=== PATIENT | male | born 1950 | race Caucasian/White ===

== ENCOUNTER 2020-04-23 23:38 | Emergency (ER) | payer MEDICARE, SELFPAY ==
--- NOTE | ~2020-04-23 | CT_ITS ---
EXAMINATION: CT brain wo con INDICATION: Head injury COMPARISON: None TECHNIQUE: Standard unenhanced head CT. The dose-length product (DLP) was 681.00 mGy-cm. The mA was a djusted according to patient size. Iterative reconstruction technique was employed. FINDINGS: There is no acute intraparenchymal hemorrhage. No evidence of mass lesion. No evidence of a cute infarction. An old lacunar infarct is noted in right periventricular frontal lobe. There is mild periventricular and subcortical hypodensity probably related to small vessel ischemic disease. There is mild prominence of the sulci and ventricles related to cerebral atrophy. Intracranial calcified c erebral atherosclerosis is noted. There are no extra-axial collections. There is no mass effect or mi dline shift. Changes in the globes are likely from ocular lens surgery. There is mild mucosal thicke jaspreet of the paranasal sinuses. Surgical changes are noted in the maxillary sinuses. IMPRESSION: 1. No acute intracranial abnormality. 2. Age related findings. Reviewed, dictated and finalized at location A.
--- NOTE | ~2020-04-23 | CT_ITS ---
EXAMINATION: CT cervical spine wo con DATE: 04/24/2020 02:22 INDICATION: Neck pain TECHNIQUE: Computed tomography (CT) of the cervical spine was performed without intravenous contrast. The dose-length product (DLP) was 404.77 mGy-cm. Automated exposure control and iterative reconstruc tion technique were employed. COMPARISON: None FINDINGS: Bone alignment is normal. There is no fracture. There is mild loss of intervertebral disc s pace height at C5-6. The vertebral body heights are normal. The odontoid is intact. The prevertebral soft tissues are normal. Small degenerative osteophytes project from the anterior endplates of multip le vertebral bodies. There is mild multilevel facet and uncovertebral osteoarthritis. IMPRESSION: 1. Mild cervical spondylosis without acute findings. Reviewed, dictated and finalized at location A.
[2020-04-24 00:13] VITALS: BP 120/68; PULSE 91; RESP 20; TEMP 36.9; O2SAT 94
--- NOTE | 2020-04-24 01:05 | ED.HEATRA ---
HPI - Head Injury General Chief complaint: Head Injury Stated complaint: HEAD LOC, +ETOH Time Seen by Provider: 04/24/20 01:05 History of Present Illness HPI Narrative: He had too much to drink this evening and fell backwards striking his head on the ground. He sustained a laceration to the back of the head. No LOC. He denies any additional pain or injury. History somewhat limited due to intoxication. Related Data Home Medications Medication Instructions Recorded Confirmed atorvastatin 20 mg PO DAILY 04/24/20 buspirone 30 mg PO DAILY 04/24/20 escitalopram oxalate 5 mg PO DAILY 04/24/20 fluticasone propionate INTRANASAL DAILY 04/24/20 metformin 500 mg PO DAILY 04/24/20 pantoprazole 40 mg PO DAILY 04/24/20 Allergies Allergy/AdvReac Type Severity Reaction Status Date / Time No Known Allergies Allergy Verified 04/24/20 00:51 Review of Systems Review of Systems: All systems reviewed & are unremarkable except as noted in HPI and below Exam Const: General: healthy appearing, no acute distress and alert Orientation/consciousness: patient oriented x3 HENMT: Other: 8 cm posterior scalp laceration. Eyes: Pupils: Equal, round and reactive pupils present Neck: Neck: normal visual inspection and no lymphadenopathy Chest: Chest palpation & inspection: no tenderness Resp: Effort & Inspection: normal respiratory effort Auscultation: clear to auscultation bilaterally, no rales, no rhonchi and no wheezes Cardio: Jugular venous distension: no JVD Rate: regular rate Rhythm: regular rhythm Heart sounds: no murmurs GI: Inspection: non-distended GI Palp: Yes Soft to palpation and No Tenderness to palpation present (GI) Skin: General skin exam: normal color Neuro: General: patient oriented x3 and moves all extremities Speech: Abnormal speech present slurred Extrem: General: no edema Psych: Appearance: well kempt Affect: normal affect Course Vital Signs Vital signs: Vital Signs Temperature 36.9 C 04/24/20 00:13 Pulse Rate 91 04/24/20 00:13 Respiratory Rate 20 04/24/20 00:13 Blood Pressure 120/68 04/24/20 00:13 Pulse Oximetry 94 04/24/20 00:13 Temperature 36.9 C 04/24/20 00:13 Pulse Rate 87 04/24/20 02:55 Respiratory Rate 18 07/19/20 02:55 Blood Pressure 116/71 04/24/20 02:55 Pulse Oximetry 95 04/24/20 02:55 Procedures Laceration Laceration 1: Site: scalp Size (cm): 8 Description: linear Depth: simple, single layer Local Anesthetic: none Pre-repair: wound explored and irrigated ====== Skin Level ====== Skin layer closed with: simi Number of sutures: 7 ====== Subcutaneous Layer ====== ====== Muscle Layer ====== ====== Tendon Layer ====== MDM - Head Injury Imaging Data Radiologist's impression: ITS Impressions Head CT 04/24/20 10:11 IMPRESSION: 1. No acute intracranial abnormality. 2. Age related findings. Cervical Spine CT 04/24/20 10:17 IMPRESSION: 1. Mild cervical spondylosis without acute findings. Discharge Plan Discharge Clinical Impression: Laceration of scalp, Closed head injury Patient Disposition: Home, Self-Care Condition: Stable Instructions: Head Injury (ED), Staple Care (ED) Additional Instructions: follow-up for staple removal in 10-14 days Prescriptions: No Action metformin 500 mg tablet 500 mg PO DAILY RF: 0 atorvastatin 20 mg tablet 20 mg PO DAILY RF: 0 pantoprazole 40 mg tablet,delayed release (DR/EC) 40 mg PO DAILY RF: 0 buspirone 30 mg tablet 30 mg PO DAILY RF: 0 fluticasone propionate 50 mcg/actuation spray,suspension INTRANASAL DAILY RF: 0 escitalopram oxalate 5 mg tablet 5 mg PO DAILY RF: 0 Follow-up/Referrals: Siva Brown MD [Physician] - UNKNOWN,DOCTOR [Primary Care Provider] - Discharge Date/Time: 04/24/20 03:05
[2020-04-24 02:00] VITALS: BP 115/68; PULSE 84; RESP 17; O2SAT 95
[2020-04-24 02:55] VITALS: BP 116/71; PULSE 87; RESP 18; O2SAT 95
== END 2020-04-24 03:05 | disposition home or self-care (01) ==
PROVIDERS: Emergency Provider Emergency Medicine
DX: S01.01XA Laceration without foreign body of scalp, initial encounter (principal); Z79.84 Long term (current) use of oral hypoglycemic drugs; M47.812 Spondylosis without myelopathy or radiculopathy, cervical region; W18.39XA Other fall on same level, initial encounter
CPT/HCPCS: 12004; 70450; 72125; 99284; L0140

== ENCOUNTER 2021-02-22 16:22 | Emergency (ER) | payer MEDICARE, SELFPAY ==
--- NOTE | ~2021-02-22 | CT_ITS ---
EXAMINATION: CT brain wo con DATE: 02/22/2021 17:41 INDICATION: Unsteadiness. Weakness. TECHNIQUE: Computed tomography (CT) of the head was performed without intravenous contrast. The mA wa s adjusted according to patient size. Iterative reconstruction technique was employed. Exam dose: 60 5.33 mGy-cm total exam DLP. COMPARISON: 04/24/2020 CT brain FINDINGS: No intracranial mass lesion or hemorrhage or recent cerebrovascular accident. No midline sh ift or mass effect. There is central and cortical cerebral atrophy. Bilateral carotid siphon internal carotid artery calcifications. There is nonspecific diminished atte nuation of the cerebral white matter, likely due to chronic small vessel ischemic changes. Small lacu win infarct in the right frontal periventricular area. No subdural or epidural hematoma. There is evidence of postoperative change including bilateral nasal antral windows. There is severe mucoperiosteal thickening of the maxillary sinuses and prominent soft tissue opacific ation of ethmoid air cells bilaterally. Prominent right and lesser left sphenoid sinus mucoperiosteal soft tissue thickening. No fracture or bone destruction of the cranial vault. Impression: Small right periventricular chronic lacunar infarct Cerebral atherosclerosis and chronic small vessel ischemic changes of cerebral white matter Central and cortical cerebral atrophy Extensive mucoperiosteal thickening of the ethmoid air cells, maxillary sinuses, sphenoid sinuses Postoperative changes including bilateral nasal antral windows Reviewed, dictated and finalized at Location A. Reviewed, dictated and finalized at location B. Impression: Small right periventricular chronic lacunar infarct Cerebral atherosclerosis and chronic small vessel ischemic changes of cerebral white matter Central and cortical cerebral atrophy Extensive mucoperiosteal thickening of the ethmoid air cells, maxillary sinuses , sphenoid sinuses Postoperative changes including bilateral nasal antral windows
--- NOTE | ~2021-02-22 | XR_ITS ---
EXAMINATION: XR chest 1V portable INDICATION: Weakness TECHNIQUE: Portable AP chest at 1708 hours COMPARISON: None available FINDINGS: There is atelectasis or scarring of the left lung base. There is no pleural effusion or pne umothorax. The cardiomediastinal silhouette is normal. There is a healing right sixth rib fracture. IMPRESSION: 1. Atelectasis or scarring of the left lung base. Reviewed, dictated and finalized at location A.
--- NOTE | 2021-02-22 16:55 | ECG_ITS ---
Measurements Intervals [place] Rate: 97 P: 55 CO: 167 QRS: 7 QRSD: 106 T: 40 QT: 335 QTc: 427 Interpretive Statements SINUS RHYTHM INCOMPLETE RIGHT BUNDLE BRANCH BLOCK BASELINE WANDER- I, II, AVR, AVL, V4-V6 BORDERLINE ECG Electronically Signed On 02-22-2021 19:58:08 CDT by Josué Goodwin D.O.
--- NOTE | 2021-02-22 16:58 | ED.GENADULT ---
HPI - General Adult General Chief complaint: Unspecified Stated complaint: loss of balance Time Seen by Provider: 02/22/21 16:34 Source: patient, family and RN notes reviewed Mode of arrival: ambulatory Limitations: no limitations History of Present Illness HPI narrative: Patient is 70 years old white male brought to the emergency room by his because of trouble walking, and taking care of himself as usual, decreased appetite, long hours of sleep, intermittent confusion started 4 days ago. Patient was discharged from [facility] 4 days ago after 3 days of hospitalization of alcohol detox. Last alcohol intake 2 weeks ago. Patient been drinking alcohol over 50 years. Patient was discharged home on Librium 25 mg 3 times daily. Currently patient main complaint is I cannot function as usual. Patient denies any fever, chills, nausea, vomiting, abdominal pain, chest pain, shortness of breath or back pain. Related Data Home Medications Medication Instructions Recorded Confirmed atorvastatin 20 mg PO DAILY 04/24/20 buspirone 30 mg PO DAILY 04/24/20 escitalopram oxalate 5 mg PO DAILY 04/24/20 fluticasone propionate INTRANASAL DAILY 04/24/20 metformin 500 mg PO DAILY 04/24/20 pantoprazole 40 mg PO DAILY 04/24/20 Allergies Allergy/AdvReac Type Severity Reaction Status Date / Time No Known Allergies Allergy Verified 04/24/20 00:51 Review of Systems Review of Systems: Narrative: CONSTITUTIONAL: Denies fever, chills, or sweats. EYES: Denies visual changes, redness, or discharge. ENT: Denies rhinorrhea, congestion, sore throat, or otalgia. CARDIOVASCULAR: Denies chest pain, palpitations, or edema. RESPIRATORY: Denies cough or dyspnea. GASTROINTESTINAL: Denies abdominal pain, nausea, vomiting, or diarrhea. GENITOURINARY: Denies dysuria or hematuria. SKIN: Denies rash or itching. MUSCULOSKELETAL: Denies back pain, joint pain, or myalgia. NEUROLOGIC: Denies headache, numbness, or weakness. PSYCHIATRIC: Denies anxiety or depression. Exam Narrative: Exam Narrative: General appearance: Well-developed, well-nourished Skin: Normal color Head: Normocephalic, nontraumatic Eyes: Clear conjunctiva ENT: Oropharynx normal, ears normal, nose normal Neck: Supple, nontender Chest and respiratory: Airway patent, no respiratory distress, no accessory muscle use Heart: Regular rate/rhythm Abdomen: Soft, nontender, no organomegaly, quiet bowel sounds Vascular: Normal peripheral pulses, normal capillary refill. 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 Labs, chest x-ray, EKG, CT head ordered. Further plan to follow Differential Diagnosis Differential Diagnosis: Electrolyte imbalance, alcohol withdrawal, Librium effects, urinary tract infection Imaging Data Radiologist's impression: Impressions Chest X-Ray 02/22/21 17:12 IMPRESSION: 1. Atelectasis or scarring of the left lung base. Head CT 02/22/21 17:44 Impression: Small right periventricular chronic lacunar infarct Cerebral atherosclerosis and chronic small vessel ischemic changes of cerebral white matter Central and cortical cerebral atrophy Extensive mucoperiosteal thickening of the ethmoid air cells, maxillary sinuses, sphenoid sinuses Postoperative changes including bilateral nasal antral windows ECG Data EKG #1: Attestation: I personally reviewed and interpreted this ECG a
[2021-02-22 16:59] VITALS: BP 127/86; PULSE 99; RESP 14; TEMP 37.2; O2SAT 98
[2021-02-22 17:10] LABS: Basophils Percent Auto 0.4 % (0.2-1.2); Eosinophils Absolute Auto 0.1 K/mm3 (0-0.3); Eosinophils Percent Auto 1.2 % (0-4.4); Hematocrit 44.7 % (42.0-52.0); Hemoglobin 14.7 g/dL (14.0-18.0); Immature Granulocyte Absolute 0.03 K/mm3 (0.00-0.031); Immature Granulocyte Percent A 0.4 % (0-0.5); Lymphocytes Absolute Auto 2.49 K/mm3 (0.9-3.2); Lymphocytes Percent Auto 29.4 % (18.3-44.2); Mean Corpuscular HGB Conc 32.9 g/dl (32-36); Mean Corpuscular Hemoglobin 32.8 pg (26-34); Mean Corpuscular Volume 99.8 fl (80-100); Mean Platelet Volume 10.4 fl (7.4-10.4); Monocytes Absolute Auto 0.7 K/mm3 (0.1-0.6); Monocytes Percent Auto 8.6 % (2.6-8.5); Neutrophils Absolute Auto 5.1 K/mm3 (1.3-6.7); Platelet Count Result 274 k/mm3 (150-375); Red Blood Count 4.48 M/mm3 (4.6-6.20); Red Cell Distribution Width 11.9 % (11.5-14.5); White Blood Count 8.5 K/mm3 (4.5-10.0)
[2021-02-22 17:17] LABS: Ammonia < 9 umol/L (9-30); Ethanol < 10 mg/dL (<10)
[2021-02-22 17:23] LABS: Add Urine Microscopic? NO; Appearance Urine Clear (Clear); Bilirubin Urine Negative (Negative); Blood Urine Negative (Negative); Color Urine Yellow (Yellow); Glucose Urine UA Negative (Negative); Ketones Urine Negative (Negative); Leukocyte Esterase Ur Negative LEU/UL (Negative); Nitrate Urine Negative (Negative); Protein Urine Negative (Negative); Specific Grav Ur 1.006 (1.001-1.035); Urobilinogen Urine Negative mg/dL (<2.0)
[2021-02-22 17:24] LABS: Alanine Aminotransferase 31 U/L (4-50); Albumin Level 4.3 g/dL (3.5-5.1); Alkaline Phosphatase 115 U/L (38-126); Anion Gap 7 mmol/L (8-16); Aspartate Amino Transferase 28 U/L (17-59); Bilirubin,Total 0.4 mg/dL (0.2-1.3); Blood Urea Nitrogen 12 mg/dL (9-20); Calcium 9.6 mg/dL (8.4-10.2); Carbon Dioxide 26 mmol/L (22-30); Chloride 103 mmol/L (98-107); Creatine Kinase 27 U/L (55-170); Estimated CRCL calculation 66 ml/min; Estimated Glomerular Filt Rate > 60; Glucose 149 mg/dL (75-110); Potassium 3.7 mmol/L (3.4-5.0); Sodium 136 mmol/L (137-145)
[2021-02-22 17:25] LABS: INR 0.9; Prothrombin Time 13.1 Seconds (11.1-14.7)
[2021-02-22 17:26] LABS: Partial Thromboplastin Time 30.9 SECONDS (22.3-36.8)
[2021-02-22 18:28] VITALS: BP 133/93; PULSE 94; RESP 14; O2SAT 99
== END 2021-02-22 18:29 | disposition home or self-care (01) ==
PROVIDERS: Emergency Provider Emergency Medicine; PCP Internal Medicine
DX: R53.1 Weakness (principal); T42.4X5A Adverse effect of benzodiazepines, initial encounter; E11.9 Type 2 diabetes mellitus without complications; E78.5 Hyperlipidemia, unspecified; K21.9 Gastro-esophageal reflux disease without esophagitis; F32.9 Major depressive disorder, single episode, unspecified; Z79.899 Other long term (current) drug therapy; Z79.84 Long term (current) use of oral hypoglycemic drugs; I45.10 Unspecified right bundle-branch block; I67.2 Cerebral atherosclerosis; G31.9 Degenerative disease of nervous system, unspecified; F10.20 Alcohol dependence, uncomplicated
CPT/HCPCS: 36415; 70450; 71045; 80053; 80307; 81003; 82140; 82550; 85025; 85610; 85730; 93005; 99284

== ENCOUNTER 2023-03-14 22:58 | Emergency (ER) | payer MEDICARE, SELFPAY ==
--- NOTE | ~2023-03-14 | CT_ITS ---
Non-contrast Head CT History: Status post fall COMPARISON: 02/22/2021 Technique: Axial non-contrast imaging of the brain was performed. Dose reduction technique was used on this scan by utilizing automated exposure control and iterative reconstruction technique. The dose -length product (DLP) was 681.00 mGy-cm. Findings: There is no evidence of intracranial hemorrhage, mass lesion, or acute infarct. Brain par enchyma appears normal. The ventricles and subarachnoid spaces are normal in size. The calvarium ap pears normal. There is bilateral maxillary sinus disease and mild left ethmoid sinus disease. The rem aining visualized paranasal sinuses and mastoid air cells are clear. Impression: No intracranial abnormality seen. Sinus disease, as above. Reviewed, dictated and finalized at location . Impression: No intracranial abnormality seen. Sinus disease, as above.
[2023-03-14 23:01] VITALS: BP 135/70; PULSE 89; RESP 17; TEMP 36.9; O2SAT 98
[2023-03-14 23:14] VITALS: BP 134/81; PULSE 81; RESP 15; TEMP 36.6; O2SAT 98
[2023-03-14 23:15] VITALS: O2SAT 100
[2023-03-15 00:35] VITALS: BP 116/85; PULSE 76; RESP 15; O2SAT 93
--- NOTE | 2023-03-15 00:47 | ED.GENADULT ---
HPI - General Adult General Chief complaint: Head Injury <SONIA Olivo Last Filed: 03/15/23 03:29> Stated complaint: fall, head trauma <SONIA Olivo Last Filed: 03/15/23 03:29> Time Seen by Provider: 03/14/23 23:07 <SONIA Olivo Last Filed: 03/15/23 03:29> Source: patient <SONIA Olivo Last Filed: 03/15/23 03:29> Mode of arrival: ambulatory <SONIA Olivo Last Filed: 03/15/23 03:29> Limitations: no limitations <SONIA Olivo Last Filed: 03/15/23 03:29> History of Present Illness HPI narrative: This is a 72-year-old male who presents to the ED with chief complaint of a head injury that occurred just prior to arrival. Patient reports that he was on [place] deck by [place] when he stumbled and fell and hit his head. He does endorse EtOH use. When asked how much, he states about 2 hours worth. States that he stumbled on something on the ground. Reports that he fell headfirst. Reports some pain and laceration to the top of the scalp. Denies any further site of pain or injury. Denies any other substance use. Denies any LOC or blood thinner use. Denies any neurologic symptoms. <SOINA Olivo Last Filed: 03/15/23 03:29> Related Data Home medications: Home Medications Medication Instructions Recorded Confirmed atorvastatin 20 mg tablet 20 mg PO DAILY 04/24/20 buspirone 30 mg tablet 30 mg PO DAILY 04/24/20 escitalopram oxalate 5 mg tablet 5 mg PO DAILY 04/24/20 fluticasone propionate 50 intranasal DAILY 04/24/20 mcg/actuation nasal spray,suspension metformin 500 mg tablet 500 mg PO DAILY 04/24/20 pantoprazole 40 mg tablet,delayed 40 mg PO DAILY 04/24/20 release <SONIA Olivo Last Filed: 03/15/23 03:29> Allergies/adverse reactions: Allergies Allergy/AdvReac Type Severity Reaction Status Date / Time No Known Allergies Allergy Verified 04/24/20 00:51 <Javad Hopper PA-C - Last Filed: 03/15/23 03:29> Review of Systems Review of Systems: CONSTITUTIONAL: Denies fever, chills, or sweats. EYES: Denies visual changes, redness, or discharge. ENT: Denies rhinorrhea, congestion, sore throat, or otalgia. CARDIOVASCULAR: Denies chest pain, palpitations, or edema. RESPIRATORY: Denies cough or dyspnea. GASTROINTESTINAL: Denies abdominal pain, nausea, vomiting, or diarrhea. GENITOURINARY: Denies dysuria or hematuria. SKIN: See HPI MUSCULOSKELETAL: Denies back pain, joint pain, or myalgia. NEUROLOGIC: Denies headache, numbness, dizziness, or weakness. PSYCHIATRIC: Denies anxiety or depression. <Javad Hopper PA-C - Last Filed: 03/15/23 03:29> Exam Narrative: GENERAL: Clinically intoxicated but cooperative and conversational. HEAD: Normocephalic, atraumatic. EYES: PERRLA and EOMI. ENT: Nares clear, no rhinorrhea or epistaxis. Mucous membranes moist. Oropharynx without tonsillar hypertrophy exudate or other lesions. NECK: Supple. No adenopathy or masses. CHEST: No respiratory distress. Clear to auscultation. No wheezes rales or rhonchi HEART: Regular rate and rhythm. No murmur heard. Normal peripheral pulses. ABDOMEN: Soft, nontender, nondistended, normal active bowel sounds. MSK: Normal range of motion. No edema. SKIN: There is a 5 cm flap laceration to the superiormost scalp. Bleeding controlled. No obvious foreign bodies. NEURO: Alert and oriented x3. No focal deficits. PSYCH: Normal mood and affect. 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 I performed all aspects of the MDM as documented w/ the following additions: 72-year-old male presenting ED with intoxication and head laceration. CT was negative. Laceration was repaired with evans components performed under my supervision. Patient will be discharged. All questions answered. Patient in agreement w/ disposition.
[2023-03-15 02:06] VITALS: BP 126/86; PULSE 72; RESP 14; O2SAT 94
[2023-03-15 02:53] VITALS: BP 150/89; PULSE 78; RESP 16; O2SAT 94
== END 2023-03-15 02:54 | disposition home or self-care (01) ==
PROVIDERS: Emergency Provider Physician Assistant; PCP Internal Medicine
DX: S01.01XA Laceration without foreign body of scalp, initial encounter (principal); W18.09XA Striking against other object with subsequent fall, initial encounter; Z79.84 Long term (current) use of oral hypoglycemic drugs
CPT/HCPCS: 12002; 70450; 99284

== ENCOUNTER 2023-03-23 08:31 | Emergency (ER) | payer MEDICARE, SELFPAY ==
--- NOTE | 2023-03-23 08:38 | ED.SKABFB ---
HPI - Skin/Abscess/Foreign Bdy General Chief complaint: Skin/Abscess/Foreign Body Stated complaint: Remove Simi Source: patient and RN notes reviewed History of Present Illness HPI narrative: 72 yo M Presents to urgent care with requests for staple removal. Pt was seen in the ED on 03/15/23 and recieved simi to his superior scalp after losing his balance and falling, hitting his head on the deck, per ED notes. Pt presents today with no complaints. Pt denies any drainage or tenderness to the area. Denies any ORDOÑEZ, dizziness, chest pain, or SOB. Related Data Home Medications Medication Instructions Recorded Confirmed atorvastatin 20 mg tablet 20 mg PO DAILY 04/24/20 03/23/23 buspirone 30 mg tablet 30 mg PO DAILY 04/24/20 03/23/23 escitalopram oxalate 5 mg tablet 5 mg PO DAILY 04/24/20 03/23/23 fluticasone propionate 50 50 mcg intranasal DAILY 04/24/20 03/23/23 mcg/actuation nasal spray,suspension metformin 500 mg tablet 500 mg PO DAILY 04/24/20 03/23/23 pantoprazole 40 mg tablet,delayed 40 mg PO DAILY 04/24/20 03/23/23 release Allergies Allergy/AdvReac Type Severity Reaction Status Date / Time No Known Allergies Allergy Verified 03/23/23 08:36 Review of Systems Review of Systems: CONSTITUTIONAL: Denies fever, chills, or sweats. EYES: Denies visual changes, redness, or discharge. ENT: Denies otalgia and sore throat CARDIOVASCULAR: Denies chest pain, palpitations, or edema. RESPIRATORY: Denies cough or dyspnea. GASTROINTESTINAL: Denies abdominal pain, nausea, vomiting, or diarrhea. GENITOURINARY: Denies dysuria or hematuria. SKIN: wound to top of scalp. MUSCULOSKELETAL: Denies back pain, joint pain, or myalgia. NEUROLOGIC: Denies headache, numbness, or weakness. Pertinent positives per HPI. PMFSH Comments At the time of my signature, I reviewed and agree with the nursing past medical, surgical, social, and family history. There is no relevant family history pertinent to the patient complaint. Exam Narrative: GENERAL: This is a well-nourished, well-developed patient, in no apparent distress. HEAD: normocephalic, atraumatic. EYES: Sclera clear/white. Vision is grossly intact. EARS: External ears normal, auditory canals clear and without drainage. Hearing grossly intact. NOSE: External nose normal with no obvious nasal discharge, nares without redness, no rhinorrhea. THROAT: Mucous membranes moist, posterior pharynx clear. NECK: Neck supple, non-tender without lymphadenopathy, masses or thyromegaly. CARDIOVASCULAR: Regular rate and rhythm without murmurs, gallops, or rubs. RESPIRATORY: Clear to auscultation. Breath sounds equal bilaterally. No wheezes, rales, or rhonchi. GASTROINTESTINAL: Abdomen soft, non-tender, nondistended. Bowel sounds are active. No hepato-splenomegaly, or palpable masses. No guarding. SKIN: 10 simi noted to superior scalp with thick, dried, blood covering wound. See procedure note for more details. NEURO: awake, alert, and oriented to person, place and time. There were no obvious focal neurologic abnormalities. Course Course Level of Care: Express Care Visit Vital Signs Vital signs: Vital Signs Temperature 98.2 F 03/23/23 08:43 Pulse Rate 107 H 03/23/23 08:43 Respiratory Rate 16 03/23/23 08:43 Blood Pressure 153/99 H 03/23/23 08:43 Pulse Oximetry 99 03/23/23 08:43 Oxygen Delivery Room Air 03/23/23 08:43 Temperature 98.2 F 03/23/23 08:45 Pulse Rate 107 H 03/23/23 08:45 Respiratory Rate 16 03/23/23 08:45 Blood Pressure 153/99 H 03/23/23 08:45 Pulse Oximetry 99 03/23/23 08:45 Oxygen Delivery Room Air 03/23/23 08:45 Reviewed Procedures Other Procedure Procedure 1: Other Procedure: staple removal- Using the staple removers, the 1st two simi were removed in center of wound, showing poor closure of wound, minimal blood noted. 4 more simi were removed from one edge of wound where skin was noted to be he
[2023-03-23 08:43] VITALS: BP 153/99; PULSE 107; RESP 16; TEMP 36.8; O2SAT 99
[2023-03-23 08:45] VITALS: BP 153/99; PULSE 107; RESP 16; TEMP 36.8; O2SAT 99
== END 2023-03-23 09:13 | disposition home or self-care (01) ==
PROVIDERS: Emergency Provider Nurse Practitioner Family; PCP Internal Medicine
DX: Z48.02 Encounter for removal of sutures (principal)
CPT/HCPCS: 99211; G0463

== ENCOUNTER 2023-03-27 15:21 | Emergency (ER) | payer MEDICARE, SELFPAY ==
[2023-03-27 15:40] VITALS: BP 150/91; PULSE 108; RESP 14; TEMP 37.2; O2SAT 95
--- NOTE | 2023-03-27 16:08 | ED.SKABFB ---
HPI - Skin/Abscess/Foreign Bdy General Chief complaint: Skin/Abscess/Foreign Body Stated complaint: Simi need to be removed in head Time Seen by Provider: 03/27/23 16:00 Source: patient Mode of arrival: ambulatory Limitations: no limitations History of Present Illness HPI narrative: 72-year-old male presents needing for simi removed from scalp. Was seen here several days ago to have them removed but laceration was still healing. Patient also reports prior Domenic drainage, sinus pressure, postnasal drainage, sore throat for 2 weeks. Using to nasal sprays and clear today with no relief of symptoms. Afebrile. All systems reviewed and negative except as noted above. Related Data Home Medications Medication Instructions Recorded Confirmed atorvastatin 20 mg tablet 20 mg PO DAILY 04/24/20 03/27/23 buspirone 30 mg tablet 30 mg PO DAILY 04/24/20 03/27/23 escitalopram oxalate 5 mg tablet 5 mg PO DAILY 04/24/20 03/27/23 fluticasone propionate 50 50 mcg intranasal DAILY 04/24/20 03/27/23 mcg/actuation nasal spray,suspension metformin 500 mg tablet 500 mg PO DAILY 04/24/20 03/27/23 pantoprazole 40 mg tablet,delayed 40 mg PO DAILY 04/24/20 03/27/23 release azelastine 137 mcg (0.1 %) nasal 137 mcg intranasal DAILY 03/27/23 03/27/23 spray aerosol venlafaxine 225 mg tablet,extended 225 mg PO DAILY 03/27/23 03/27/23 release 24 hr Allergies Allergy/AdvReac Type Severity Reaction Status Date / Time No Known Allergies Allergy Verified 03/27/23 15:47 Review of Systems Review of Systems: CONSTITUTIONAL: Denies fever, chills, or sweats. EYES: Denies visual changes, redness, or discharge. ENT: Reports rhinorrhea, congestion, sore throat, postnasal drainage. Denies otalgia. CARDIOVASCULAR: Denies chest pain, palpitations, or edema. RESPIRATORY: Denies cough or dyspnea. GASTROINTESTINAL: Denies abdominal pain, nausea, vomiting, or diarrhea. GENITOURINARY: Denies dysuria or hematuria. SKIN: Denies rash or itching. requesting staple removal. MUSCULOSKELETAL: Denies back pain, joint pain, or myalgia. NEUROLOGIC: Denies headache, numbness, or weakness. PSYCHIATRIC: Denies anxiety or depression. All other systems reviewed are negative, except as documented in HPI. PMFSH Comments At time of signature, agree with nursing past medical, surgical, social and family history. There is no relevant family history pertinent to the presenting complaint. Exam Narrative: GENERAL: This is a well-nourished, well-developed patient, in no apparent distress. HEAD: normocephalic, atraumatic. EYES: PERRL. Sclera clear/white. Vision is grossly intact. EARS: External ears normal, auditory canals clear and without drainage, Fluid bilateral TMs without erythema or perforation. NOSE: External nose normal with purulent nasal drainage, erythema and swelling to both nares. Bilateral maxillary sinus tenderness. THROAT: Mucous membranes moist, Postnasal drainage with mild erythema. No swelling. No tonsillar exudates. NECK: Neck supple, non-tender without lymphadenopathy, masses or thyromegaly. CARDIOVASCULAR: Regular rate and rhythm without murmurs, gallops, or rubs. RESPIRATORY: Clear to auscultation. Breath sounds equal bilaterally. No wheezes, rales, or rhonchi. SKIN: warm, Dry, intact with no suspicious lesions or rash, good texture and turgor. healing laceration to crown of scalp. scabbed. 4 simi removed without wound dehiscence. NEURO: awake, alert, and oriented to person, place and time. There were no obvious focal neurologic abnormalities. EXTREMITIES: No joint tenderness, effusion, or edema noted. Course Course Level of Care: Express Care Visit Vital Signs Vital signs: Vital Signs Temperature 37.2 C 03/27/23 15:40 Pulse Rate 108 H 03/27/23 15:40 Respiratory Rate 14 03/27/23 15:40 Blood Pressure 150/91 H 03/27/23 15:40 Pulse Oximetry 95 03/27/23 15:40 Temperature 37.2 C 03/08
== END 2023-03-27 16:10 | disposition home or self-care (01) ==
PROVIDERS: Emergency Provider Nurse Practitioner Family; PCP Internal Medicine
DX: J01.90 Acute sinusitis, unspecified (principal); S01.01XD Laceration without foreign body of scalp, subsequent encounter; X58.XXXD Exposure to other specified factors, subsequent encounter; E78.00 Pure hypercholesterolemia, unspecified; K21.9 Gastro-esophageal reflux disease without esophagitis; E11.9 Type 2 diabetes mellitus without complications; F41.9 Anxiety disorder, unspecified; F32.A Depression, unspecified
CPT/HCPCS: 99213; G0463

== ENCOUNTER 2023-04-01 13:58 | Emergency (ER) | payer MEDICARE, SELFPAY ==
--- NOTE | 2023-04-01 14:01 | ED.WOUNDLAC ---
HPI - Wound/Laceration General Stated Complaint: Stitches removal Time Seen by Provider: 04/01/23 14:10 Source: patient and RN notes reviewed Mode of arrival: ambulatory Limitations: no limitations History of Present Illness HPI narrative: 72-year-old male presents with concern for staple removal. He reports he had simi removed from his scalp 5 days ago. He reports his said she noticed 2 more simi, he says he can feel them. Related Data Home Medications Medication Instructions Recorded Confirmed atorvastatin 20 mg tablet 20 mg PO DAILY 04/24/20 03/27/23 buspirone 30 mg tablet 30 mg PO DAILY 04/24/20 03/27/23 escitalopram oxalate 5 mg tablet 5 mg PO DAILY 04/24/20 03/27/23 fluticasone propionate 50 50 mcg intranasal DAILY 04/24/20 03/27/23 mcg/actuation nasal spray,suspension metformin 500 mg tablet 500 mg PO DAILY 04/24/20 03/27/23 pantoprazole 40 mg tablet,delayed 40 mg PO DAILY 04/24/20 03/27/23 release azelastine 137 mcg (0.1 %) nasal 137 mcg intranasal DAILY 03/27/23 03/27/23 spray aerosol venlafaxine 225 mg tablet,extended 225 mg PO DAILY 03/27/23 03/27/23 release 24 hr Allergies Allergy/AdvReac Type Severity Reaction Status Date / Time No Known Allergies Allergy Verified 04/01/23 14:13 Review of Systems Review of Systems: CONSTITUTIONAL: Denies malaise, chills, sweats, or fever. EYES: Denies redness, or discharge. ENT: Denies rhinorrhea, congestion, swollen lips, swollen tongue CARDIOVASCULAR: Denies chest pain, palpitations, or edema. RESPIRATORY: Denies cough or dyspnea. GASTROINTESTINAL: Denies abdominal pain, nausea, vomiting SKIN: Reports retained simi on his scalp MUSCULOSKELETAL: Denies joint pain or myalgia. NEUROLOGIC: Denies headache. All systems reviewed & are unremarkable except as noted in HPI and below PMFSH Comments At time of signature, agree with nursing past medical, surgical, social and family history. There is no relevant family history pertinent to the presenting complaint Exam Narrative: GENERAL: Well-appearing, well-nourished, and in no acute distress. HEAD: Normocephalic, atraumatic. EYES: PERRLA, conjunctivae clear, and EOMI. ENT: Mucous membranes moist. Oropharynx without edema, erythema or lesions. NECK: Supple. No lymphadenopathy CHEST: Clear to auscultation. No respiratory distress. HEART: Regular rate and rhythm. SKIN: Warm, dry. Approximately 5 cm scabbed wound noted to the scalp. Scab is very thick and deep. Wound was explored very carefully and no retained simi were noted. There is no surrounding erythema, edema, induration. No drainage is noted NEURO: Alert and oriented x3. PSYCH: Normal mood and affect Course Course Emergency Course: Patient is aware of diagnosis, understands and agrees to treatment plan. Anticipatory guidance given. Patient agrees to follow-up as directed and is aware of reasons to seek care at the emergency department. Portions of this record may have been created with voice recognition software Level of Care: Express Care Visit Vital Signs Vital signs: Reviewed. MDM - Wound/Laceration MDM Narrative Medical decision making narrative: Exam findings show no acute concerns or changes; patient is non-toxic appearing and is in no distress. Patient is appropriate for outpatient treatment and follow-up. Critical Care Time Critical Care Time Critical Care Time: No Discharge Plan Discharge Clinical Impression: Visit for wound check Patient Disposition: Home, Self-Care Condition: Stable Instructions: General Patient Instructions Additional Instructions: Let warm soapy water run over the scab on your head, wash it gently, try not to take away at the scab. You can apply Neosporin to the scabs twice daily If you notice any abnormalities, you feel any simi once the scab is removed please return for re-evaluation. Continue to monitor for signs of infection such as increasing pain, redne
[2023-04-01 14:04] VITALS: BP 152/90; PULSE 113; RESP 16; TEMP 37.3; O2SAT 96
== END 2023-04-01 14:20 | disposition home or self-care (01) ==
PROVIDERS: Emergency Provider Nurse Practitioner; PCP Internal Medicine
DX: Z48.01 Encounter for change or removal of surgical wound dressing (principal); E78.00 Pure hypercholesterolemia, unspecified; K21.9 Gastro-esophageal reflux disease without esophagitis; E11.9 Type 2 diabetes mellitus without complications
CPT/HCPCS: 99211; G0463